=== PATIENT | male | born 1960 | race Caucasian/White ===

== ENCOUNTER 2020-02-14 22:38 | Observation (INO) | payer BC ==
[2020-02-14] MEDS ORDERED: Sodium Chloride 0.9% 1,000 ML IV SCH (23:45)
[2020-02-14] MEDS ORDERED: Ondansetron 4 MG/2 ML SDV IVPUSH ONE (23:56)
[2020-02-14] MEDS ORDERED: HYDROmorphone 1 MG/ML Syringe IVPUSH STA (23:56)
--- NOTE | 2020-02-15 | EDM.PDOC ---
ED HPI GENERAL MEDICAL PROBLEM - General Chief Complaint: Abdominal Pain Stated Complaint: ABDOMINAL PAIN Time Seen by Provider: 02/14/20 23:40 Source of Information: Reports: Patient History Limitations: Reports: No Limitations - History of Present Illness INITIAL COMMENTS - FREE TEXT/NARRATIVE: Mr. Gannon is a very pleasant 59-year-old man with a past medical history significant for hypertension and obesity, who now presents to the ED stating that he developed right lower quadrant pain yesterday afternoon, , 2019. His pain is crampy in character, and constant. Initially it was mild, however, it has been progressively getting worse. It is made worse with movement, especially with getting up. No associated fever, nausea, vomiting, constipation, diarrhea, or urinary symptoms. No prior similar symptoms. The patient has not taken any [id number] or home remedies to try to treat his symptoms. The patient denies recent chills, sore throat, ear pain, nasal or sinus congestion, cough, dyspnea, chest pain, palpitations, recent weight gain or weight loss, recent bloody bowel movements or black bowel movements, recent joint aches, headaches, or rashes. Here in the ED, the patient's initial BP was found to be elevated at 169/105, otherwise, he is hemodynamically stable, afebrile, saturating 97% on room air. He last ate around 13:00 this afternoon. The patient's PCP is MARISSA Bowman. He did not receive an influenza vaccine this season, but agreed to receive one here today. Right Lower Abdomen Pain Score (Numeric/FACES): 8 - Related Data Allergies Allergy/AdvReac Type Severity Reaction Status Date / Time No Known Allergies Allergy Verified 02/14/20 23:00 Home Meds: Home Meds Lisinopril [Zestril] 20 mg PO DAILY 02/14/20 [History] Past Medical History Cardiovascular History: Reports: Hypertension Respiratory History: Reports: Other (See Below) (Asbestosis) Endocrine/Metabolic History: Reports: Obesity/BMI 30+ - Past Surgical History Musculoskeletal Surgical History: Reports: Other (See Below) (Bilateral biceps tendon rupture repair) Social & Family History - Tobacco Use Smoking Status *Q: Current Every Day Smoker Years of Tobacco use: 30 Packs/Tins Daily: 0.5 - Caffeine Use Caffeine Use: Reports: Coffee, Soda - Alcohol Use Alcohol Use History: Yes Alcohol Use Frequency: Socially - Recreational Drug Use Recreational Drug Use: No - Living Situation & Occupation Living situation: Reports: , with Spouse, with Family (2 kids + 1 foster child) 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 ED EXAM, GI/ABD - Physical Exam Exam: See Below Exam Limited By: No Limitations General Appearance: Alert, WD/WN, No Apparent Distress Eyes: Bilateral: Normal Appearance, EOMI Ears: Normal External Exam, Hearing Grossly Normal Nose: Normal Inspection Throat/Mouth: Normal Inspection, Normal Lips, Normal Voice, No Airway Compromise Head: Atraumatic, Normocephalic Neck: Normal Inspection, Full Range of Motion Respiratory/Chest: No Respiratory Distress, Lungs Clear, Normal Breath Sounds, No Accessory Muscle Use Cardiovascular: Normal Peripheral Pulses, Regular Rate, Rhythm, No Edema, No Gallop, No JVD, No Murmur, No Rub GI/Abdominal Exam: Normal Bowel Sounds, Soft, No Organomegaly, No Distention, No Abnormal Bruit, No Mass, Tender (Exquisite tenderness right lower quadrant only. Nontender elsewhere, but Rovsing sign present. Psoas sign absent. Obturator sign absent. Heel drop sign present.) Rectal (Males) Exam: Deferred Back Exam: Normal Inspection, Full Range of Motion. No: CVA Tenderness (L), CVA Tenderness (R) Extremities: Normal Inspection, Normal Range of Motion, No Pedal Edema, Normal Capillary Refill Neurological: Alert, Oriented, Normal Cognition, No Motor/Sensory Deficits Psychiatric: Normal Affect Skin Exam: Warm, Dry, Intact, Normal Color, No Rash Course - Vital Signs Last Recorded V/S: Last Vital Signs Temp 36.6 C 02/14/20 22:55 Pulse 100 02/14/20 22:55 Resp 20 02/14/20 22:55 BP 169/105 H 02/14/20 22:55 Pulse Ox 97 02/14/20 22:55 - Orders/Labs/Meds Orders: Active Orders 24 hr Category Date Time Status Influenza Vaccine Charge [RC] .DISCHARGE Care 02/14/20 23:58 Active Abdomen Pelvis w Cont [CT] Stat Exams 02/15/20 00:01 Taken Ertapenem [INVanz] 1 gm Med 02/15/20 02:10 Active Sodium Chloride 0.9% [Normal Saline] 50 ml IV ONETIME Lactated Ringers [Ringers, Lactated] 1,000 ml Med 02/15/20 02:15 Active IV ASDIRECTED Medication Orders Ertapenem 1 gm/ Sodium (Chloride) 50 mls @ 100 mls/hr IV ONETIME STA Stop: 02/15/20 02:39 Lactated Ringer's (Ringers, Lactated) 1,000 mls @ 125 mls/hr IV ASDIRECTED YU Labs: Laboratory Tests 02/14/20 02/14/20 Range/Units 23:22 23:22 WBC 14.46 H (4.23-9.07) K/mm3 RBC 4.34 L (4.63-6.08) M/mm3 Hgb 15.1 (13.7-17.5) gm/dl Hct 45.8 (40.1-51.0) % MCV 105.5 H D (79.0-92.2) fl MCH 34.8 H (25.7-32.2) pg MCHC 33.0 (32.2-35.5) g/dl RDW Std Deviation 49.1 H (35.1-43.9) fL Plt Count 276 (163-337) K/mm3 MPV 9.9 (9.4-12.3) fl Neutrophils % (Manual) 69 H (40-60) % Band Neutrophils % 0 (0-10) % Lymphocytes % (Manual) 23 (20-40) % Atypical Lymphs % 0 % Monocytes % (Manual) 8 (2-10) % Eosinophils % (Manual) 0 L (0.8-7.0) % Basophils % (Manual) 0 L (0.2-1.2) Platelet Estimate Adequate Anisocytosis 1+ slight Macrocytosis 2+ moderate RBC Morph Comment Not Reportable Sodium 139 (136-145) mEq/L Potassium 4.6 (3.5-5.1) mEq/L Chloride 104 (98-107) mEq/L Carbon Dioxide 25 (21-32) mEq/L Anion Gap 14.6 (5-15) BUN 15 (7-18) mg/dL Creatinine 1.4 H (0.7-1.3) mg/dL Est Cr Clr Drug Dosing 52.46 mL/min Estimated GFR (MDRD) 52 (>60) mL/min BUN/Creatinine Ratio 10.7 L (14-18) Glucose 124 H (74-106) mg/dL Calcium 8.9 (8.5-10.1) mg/dL Total Bilirubin 0.6 (0.2-1.0) mg/dL AST 36 (15-37) U/L ALT 69 H (16-63) U/L Alkaline Phosphatase 93 (46-116) U/L Total Protein 7.7 (6.4-8.2) g/dl Albumin 3.8 (3.4-5.0) g/dl Globulin 3.9 gm/dL Albumin/Globulin Ratio 1.0 (1-2) Meds: Medications Generic Name Dose Route Start Last Admin Trade Name Freq PRN Reason Stop Dose Admin Ertapenem 1 gm/ Sodium 50 mls @ 100 mls/hr 02/15/20 02:10 Chloride IV 02/15/20 02:39 ONETIME STA Lactated Ringer's 1,000 mls @ 125 mls/hr 02/15/20 02:15 Ringers, Lactated IV ASDIRECTED YU Discontinued Medications Generic Name Dose Route Start Last Admin Trade Name Freq PRN Reason Stop Dose Admin Hydromorphone HCl 0.5 mg 02/14/20 23:56 02/15/20 00:05 Dilaudid IVPUSH 02/14/20 23:57 0.5 mg ONETIME STA Administration Sodium Chloride 1,000 mls @ 150 mls/hr 02/14/20 23:45 02/15/20 00:02 Normal Saline IV 150 mls/hr ASDIRECTED YU Administration Influenza Virus Vaccine 1 each 02/14/20 23:58 Pharmacy To Dose - Influenza Vaccine IM 02/14/20 23:59 ONETIME ONE Influenza Virus Vaccine 60 mcg 02/15/20 00:15 02/15/20 00:23 Fluzone Quad [id number] Syringe IM 02/15/20 00:16 60 mcg .ONCE ONE Administration Iopamidol 100 ml 02/15/20 01:00 02/15/20 01:10 Isovue-300 (61%) IVPUSH 02/15/20 01:01 100 ml ONETIME ONE Administration Ondansetron HCl 4 mg 02/14/20 23:56 02/15/20 00:03 Zofran IVPUSH 02/14/20 23:57 4 mg ONETIME ONE Administration - Re-Assessments/Exams Free Text/Narrative Re-Assessment/Exam: 02/14/20 23:58 Physical examination are compelling for acute appendicitis. I have therefore ordered a work-up that includes blood work and a CT scan of his abdomen and pelvis with oral and IV contrast. In the meantime, the patient will be given IV Dilaudid, IV Zofran, and IV fluid. 02/15/20 00:49 The patient's CBC is remarkable for a WBC count elevated at 14.46, but with 0% bandemia. The remainder of his CBC is unremarkable. His CMP is remarkable for a Cr slightly elevated at 1.4, with a BUN normal at 15. His blood glucose is mildly elevated at 124. His AST is within normal limits at 36, but his ALT is mildly elevated at 69. The remainder of his CMP is unremarkable. 02/15/20 02:05 CT of the abdomen and pelvis with oral and IV contrast as read by [facility] as: 1. Findings consistent with acute appendicitis without perforation or abscess. 2. Colonic diverticulosis without CT findings of acute diverticulitis. 3. Additional nonemergent CT findings above. 02/15/20 02:[address] Fortune at 02:08. He asked that I give the patient 1 g of IV Invanz and switch his IV fluid to LR at 125 mL/h. I will place the patient into observation, with the anticipation that he will go to the OR in the morning. 02/15/20 02:[address] Fortune's recommendations discussed with the patient. The patient is agreeable. I will write bridge orders for pain medication and Zofran as needed. Departure - Departure Time of Disposition: 02:14 Disposition: Refer to Observation Condition: Good Clinical Impression: Acute appendicitis - Discharge Information *PRESCRIPTION DRUG MONITORING PROGRAM REVIEWED*: Not Applicable *COPY OF PRESCRIPTION DRUG MONITORING REPORT IN PATIENT ADRIANA: Not Applicable Referrals: Candie Acevedo PA-C [Ordering Only Provider] - Forms: ED Department Discharge Sepsis Event Note - Evaluation Sepsis Screening Result: No Definite Risk - Focused Exam Vital Signs: Vital Signs Temp Pulse Resp BP Pulse Ox 02/14/20 22:55 36.6 C 100 20 169/105 H 97 Date Exam was Performed: 02/15/20 Time Exam was Performed: 02:23 - My Orders Last 24 Hours: My Active Orders 02/14/20 23:58 Influenza Vaccine Charge [RC] .DISCHARGE 02/15/20 00:01 Abdomen Pelvis w Cont [CT] Stat 02/15/20 02:10 Ertapenem [INVanz] 1 gm Sodium Chloride 0.9% [Normal Saline] 50 ml IV ONETIME 02/15/20 02:15 Lactated Ringers [Ringers, Lactated] 1,000 ml IV ASDIRECTED - Assessment/Plan Last 24 Hours: My Active Orders 02/14/20 23:58 Influenza Vaccine Charge [RC] .DISCHARGE 02/15/20 00:01 Abdomen Pelvis w Cont [CT] Stat 02/15/20 02:10 Ertapenem [INVanz] 1 gm Sodium Chloride 0.9% [Normal Saline] 50 ml IV ONETIME 02/15/20 02:15 Lactated Ringers [Ringers, Lactated] 1,000 ml IV ASDIRECTED
[2020-02-15] MEDS ORDERED: FLU Vacc QS2019-20(6MOS+)/PF 60 MCG/0.5 ML SYRINGE IM ONE (00:15)
[2020-02-15] MEDS ORDERED: Iopamidol 612 MG/ML 100 ML Bottle IVPUSH ONE (01:00)
[2020-02-15] MEDS ORDERED: Ertapenem 1 GM in Sodium Chloride 0.9% 50 ML IV STA (02:10)
[2020-02-15] MEDS ORDERED: Lactated Ringers 1,000 ML IV SCH (02:15)
[2020-02-15] MEDS ORDERED: HYDROmorphone 0.5 MG/0.5 ML Syringe IVPUSH PRN ×2 (03:42→10:53)
[2020-02-15] MEDS ORDERED: Ondansetron 4 MG/2 ML SDV IVPUSH PRN ×2 (03:43→10:53)
[2020-02-15] MEDS ORDERED: Lidocaine 1% 50 ML MDV ONE (07:30)
--- NOTE | 2020-02-15 08:03 | PCM.HP.2 ---
H&P History of Present Illness - General Date of Service: 02/15/20 Admit Problem/Dx: Admission Diagnosis/Problem Admission Diagnosis/Problem Appendicitis Source of Information: Patient History Limitations: Reports: No Limitations - History of Present Illness Initial Comments - Free Text/Narative: The patient started having RLQ abdominal pain on 02/12. This got progressively worse over the next day to a point where he could not move or stand up straight. He came to the ED for evaluation. The pain was in RLQ, non-radiating, sharp, up to 8/10, movement made it worse, resting improved it, no associated nausea or vomiting. Onset of Symptoms: Reports: Gradual Duration of Symptoms: Reports: Getting Worse Location: Reports: Abdomen Quality: Reports: Sharp Severity: Severe Improves with: Reports: Immobilization Worsens with: Reports: Movement Associated Symptoms: Reports: No Other Symptoms Right Lower Abdomen Pain Score (Numeric/FACES): 3 - Related Data Allergies/Adverse Reactions: Allergies Allergy/AdvReac Type Severity Reaction Status Date / Time No Known Allergies Allergy Verified 02/14/20 23:00 Home Medications: Home Meds Lisinopril [Zestril] 20 mg PO DAILY 02/14/20 [History] Past Medical History Cardiovascular History: Reports: Hypertension Respiratory History: Reports: Other (See Below) Other Respiratory History: ANGELO Endocrine/Metabolic History: Reports: Obesity/BMI 30+ - Infectious Disease History Infectious Disease History: Reports: Chicken Pox, Measles - Past Surgical History Musculoskeletal Surgical History: Reports: Other (See Below) (Bilateral biceps tendon rupture repair) Social & Family History - Family History Neurological: Reports: Dementia Oncologic: Reports: Skin - Tobacco Use Smoking Status *Q: Current Every Day Smoker Years of Tobacco use: 30 Packs/Tins Daily: 0.5 - Caffeine Use Caffeine Use: Reports: Soda - Alcohol Use Date of Last Drink: 02/12/20 - Recreational Drug Use Recreational Drug Use: No - Living Situation & Occupation Living situation: Reports: , with Spouse, with Family (2 kids + 1 foster child) 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) H&P Review of Systems - Review of Systems: Review Of Systems: See Below General: Reports: No Symptoms HEENT: Reports: No Symptoms Pulmonary: Reports: Cough (chronic) Cardiovascular: Reports: No Symptoms Gastrointestinal: Reports: No Symptoms Genitourinary: Reports: No Symptoms Musculoskeletal: Reports: No Symptoms Skin: Reports: No Symptoms Psychiatric: Reports: No Symptoms Neurological: Reports: No Symptoms Hematologic/Lymphatic: Reports: No Symptoms Immunologic: Reports: No Symptoms Exam - Exam Exam: See Below - Vital Signs Vital Signs: Last Vital Signs Temp 98.6 F 02/15/20 02:52 Pulse 101 H 02/15/20 02:52 Resp 16 02/15/20 02:52 BP 142/94 H 02/15/20 02:52 Pulse Ox 91 L 02/15/20 02:52 Weight: 102.194 kg - Exam General: Alert, Oriented, Cooperative, Mild Distress HEENT: Conjunctiva Clear Cardiovascular: Regular Rate, Regular Rhythm, Normal S1, Normal S2 GI/Abdominal Exam: Soft, No Organomegaly, No Distention, No Abnormal Bruit, No Mass, Tender (RLQ) (Male) Exam: No Hernia Extremities: Normal Inspection - Patient Data Lab Results Last 24 hrs: Laboratory Results - last 24 hr 02/14/20 02/14/20 Range/Units 23:22 23:22 WBC 14.46 H (4.23-9.07) K/mm3 RBC 4.34 L (4.63-6.08) M/mm3 Hgb 15.1 (13.7-17.5) gm/dl Hct 45.8 (40.1-51.0) % MCV 105.5 H D (79.0-92.2) fl MCH 34.8 H (25.7-32.2) pg MCHC 33.0 (32.2-35.5) g/dl RDW Std Deviation 49.1 H (35.1-43.9) fL Plt Count 276 (163-337) K/mm3 MPV 9.9 (9.4-12.3) fl Neutrophils % (Manual) 69 H (40-60) % Band Neutrophils % 0 (0-10) % Lymphocytes % (Manual) 23 (20-40) % Atypical Lymphs % 0 % Monocytes % (Manual) 8 (2-10) % Eosinophils % (Manual) 0 L (0.8-7.0) % Basophils % (Manual) 0 L (0.2-1.2) Platelet Estimate Adequate Anisocytosis 1+ slight Macrocytosis 2+ moderate RBC Morph Comment Not Reportable Sodium 139 (136-145) mEq/L Potassium 4.6 (3.5-5.1) mEq/L Chloride 104 (98-107) mEq/L Carbon Dioxide 25 (21-32) mEq/L Anion Gap 14.6 (5-15) BUN 15 (7-18) mg/dL Creatinine 1.4 H (0.7-1.3) mg/dL Est Cr Clr Drug Dosing 52.46 mL/min Estimated GFR (MDRD) 52 (>60) mL/min BUN/Creatinine Ratio 10.7 L (14-18) Glucose 124 H (74-106) mg/dL Calcium 8.9 (8.5-10.1) mg/dL Total Bilirubin 0.6 (0.2-1.0) mg/dL AST 36 (15-37) U/L ALT 69 H (16-63) U/L Alkaline Phosphatase 93 (46-116) U/L Total Protein 7.7 (6.4-8.2) g/dl Albumin 3.8 (3.4-5.0) g/dl Globulin 3.9 gm/dL Albumin/Globulin Ratio 1.0 (1-2) Result Diagrams: 02/14/20 23:22 02/14/20 23:22 Sepsis Event Note - Evaluation Sepsis Screening Result: Sepsis Risk - Focused Exam Vital Signs: Vital Signs Temp Temp Pulse Pulse Resp BP BP 02/15/20 02:52 98.6 F 101 H 16 142/94 H 02/15/20 02:15 98.2 F 101 H 20 145/98 H 02/14/20 22:55 97.9 F 100 20 169/105 H Pulse Ox 02/15/20 02:52 91 L 02/15/20 02:15 93 L 02/14/20 22:55 97 Date Exam was Performed: 02/15/20 Time Exam was Performed: 07:58 Problem List Initiated/Reviewed/Updated: No Orders Last 24hrs: Active Orders 24 hr Category Date Time Status Admission Status [Patient Status] [ADT] Routine ADT 02/15/20 02:26 Active EKG Documentation Completion [RC] ROUTINE Care 02/15/20 07:53 Active RT Aerosol Therapy [RC] ASDIRECTED Care 02/15/20 07:54 Active Up With Assistance [RC] ASDIRECTED Care 02/15/20 03:41 Active Nothing per Oral Now Diet [DIET] Diet 02/15/20 Breakfast Active Abdomen Pelvis w Cont [CT] Stat Exams 02/15/20 00:01 Taken Albuterol [Proventil Neb Soln] Med 02/15/20 09:00 Once 2.5 mg NEB ONETIME ONE HYDROmorphone [Dilaudid] Med 02/15/20 03:42 Active 0.5 mg IVPUSH Q2H PRN Lactated Ringers [Ringers, Lactated] 1,000 ml Med 02/15/20 02:15 Active IV ASDIRECTED Ondansetron [Zofran] Med 02/15/20 03:43 Active 4 mg IVPUSH Q6H PRN Resuscitation Status Routine Resus Stat 02/15/20 03:41 Ordered Medication Orders Albuterol (Proventil Neb Soln) 2.5 mg NEB ONETIME ONE Stop: 02/15/20 09:01 Hydromorphone HCl (Dilaudid) 0.5 mg IVPUSH Q2H PRN PRN Reason: Pain Lactated Ringer's (Ringers, Lactated) 1,000 mls @ 125 mls/hr IV ASDIRECTED YU Last Admin: 02/15/20 02:45 Dose: 125 mls/hr Ondansetron HCl (Zofran) 4 mg IVPUSH Q6H PRN PRN Reason: Nausea/Vomiting Assessment/Plan Comment:: Patient has acute appendicitis. I recommended we proceed with laparoscopic appendectomy, possible open. We discussed risks, benefits and alternatives and post operative expectations. Informed consent was obtained. We will proceed with the surgery. - Mortality Measure Prognosis:: Good
[2020-02-15] MEDS ORDERED: Propofol 200 MG/20 ML SDV ONE (08:34)
[2020-02-15] MEDS ORDERED: Ondansetron 4 MG/2 ML SDV ONE (08:34)
[2020-02-15] MEDS ORDERED: Rocuronium 50 MG/5 ML Vial ONE (08:34)
[2020-02-15] MEDS ORDERED: Dexamethasone 4 MG/ML SDV ONE ×2 (08:34→08:35)
[2020-02-15] MEDS ORDERED: Lidocaine 1% 4 ML ONE (08:34)
[2020-02-15] MEDS ORDERED: Lactated Ringers 1,000 ML ONE (08:34)
[2020-02-15] MEDS ORDERED: fentaNYL 250 MCG/5 ML SDV ONE (08:35)
[2020-02-15] MEDS ORDERED: Succinylcholine/Sod PF 100 MG/5 ML SYRINGE IV ONE (08:35)
[2020-02-15] MEDS ORDERED: Midazolam 1 MG/ML 2 ML SDV ONE (08:35)
[2020-02-15] MEDS ORDERED: Albuterol 0.083% 2.5 MG/3 ML Neb Soln NEB ONE (09:00)
[2020-02-15] MEDS ORDERED: Scopolamine 1.5 MG Transdermal Patch TOP ONE (09:34)
--- NOTE | 2020-02-15 09:55 | CT ---
CT abdomen and pelvis Technique: Multiple axial sections were obtained from above the dome of the diaphragm inferiorly through the pubic symphysis. Intravenous and oral contrast was utilized. Delayed images were also obtained through the bladder. Comparison: No prior abdominal imaging is available. Findings: Visualized lung bases show nothing acute. Small nodule is noted within the left lung base measuring 7 mm. Slight pleural-based nodules are also noted within the left base. No calcifications are seen within these nodules. Liver shows fatty infiltration without focal abnormality being identified. Spleen appears within normal limits. Adrenal glands show no nodule. Kidneys show symmetric contrast enhancement without hydronephrosis or mass. Pancreas appears within normal limits. There is a duodenal diverticulum being seen measuring 2.2 cm. Aorta shows no aneurysm. Atherosclerotic calcification is noted within the aorta. Mild ectasia is noted of the distal aorta. No retroperitoneal adenopathy is seen. No mesenteric abnormalities are seen. No pelvic mass or adenopathy is seen. Appendix is slightly enlarged with mild surrounding inflammatory change. Delayed images shows contrast within the bladder. Bone window settings were reviewed which shows scattered degenerative change within the spine. No acute osseous finding is appreciated. Small fat-containing umbilical hernia is noted. Mild diverticulosis is noted within the descending and sigmoid regions without diverticulitis. Impression: 1. Findings compatible with appendicitis. 2. Nodules within the left lung base. Recommend noncontrast chest CT study in 9 months to confirm stability. This noncontrast chest CT would occur in November,. 3. Fatty infiltration within the liver and other nonacute findings as noted above. Diagnostic code #9 This report was dictated in MDT I mostly agree with preliminary report from [facility] (additional finding of left lower lung nodule for which follow-up has been recommended), finalized on 02/15/20, 3:02 AM Central Time
[2020-02-15] MEDS ORDERED: fentaNYL 100 MCG/2 ML SDV IVPUSH PRN (10:53)
--- NOTE | 2020-02-15 10:53 | PCM.PREANE ---
Preanesthetic Assessment - Procedure Proposed Procedure: Laparoscopic Appendectomy - Anesthesia/Transfusion/Family Hx Anesthesia History: Prior Anesthesia Without Reaction Type of Anesthesia Reaction: Excessive Nausea/Vomiting Family History of Anesthesia Reaction: No Transfusion History: No Prior Transfusion(s) - Review of Systems General: Malaise Pulmonary: Cough (Dry, chronic. Sinus drainage currently aggrivating his cough. ), Other (Aesbestos exposure, follows with pulmonology yearly, has a rescure inhaler that he rarely uses. ) Gastrointestinal: Abdominal Pain, Nausea (Yesterday when he came in, none today. ) Other: Reports: Sinus Problem (Sinus drainage, clear. ) - Physical Assessment NPO Status Date: 02/15/20 NPO Status Time: 00:00 Vital Signs: Last Vital Signs Temp 37.0 C 02/15/20 08:42 Pulse 93 02/15/20 08:42 Resp 16 02/15/20 08:42 BP 141/84 H 02/15/20 08:42 Pulse Ox 92 L 02/15/20 09:42 Height: 1.7 m Weight: 102.194 kg ASA Class: 3 Mental Status: Alert & Oriented x3 Airway Class: Mallampati = 2 Dentition: Reports: Caries Thyro-Mental Finger Breadths: 3 Mouth Opening Finger Breadths: 3 ROM/Head Extension: Full Lungs: Clear to Auscultation, Normal Respiratory Effort, Decreased Breath Sounds Cardiovascular: Regular Rate, Regular Rhythm - Lab Values: Laboratory Last Values WBC 14.46 K/mm3 (4.23-9.07) H 02/14/20 23:22 RBC 4.34 M/mm3 (4.63-6.08) L 02/14/20 23:22 Hgb 15.1 gm/dl (13.7-17.5) 02/14/20 23:22 Hct 45.8 % (40.1-51.0) 02/14/20 23:22 MCV 105.5 fl (79.0-92.2) H D 02/14/20 23:22 MCH 34.8 pg (25.7-32.2) H 02/14/20 23:22 MCHC 33.0 g/dl (32.2-35.5) 02/14/20 23:22 RDW Std Deviation 49.1 fL (35.1-43.9) H 02/14/20 23:22 Plt Count 276 K/mm3 (163-337) 02/14/20 23:22 MPV 9.9 fl (9.4-12.3) 02/14/20 23:22 Neutrophils % (Manual) 69 % (40-60) H 02/14/20 23:22 Band Neutrophils % 0 % (0-10) 02/14/20 23:22 Lymphocytes % (Manual) 23 % (20-40) 02/14/20 23:22 Atypical Lymphs % 0 % 02/14/20 23:22 Monocytes % (Manual) 8 % (2-10) 02/14/20 23:22 Eosinophils % (Manual) 0 % (0.8-7.0) L 02/14/20 23:22 Basophils % (Manual) 0 (0.2-1.2) L 02/14/20 23:22 Platelet Estimate Adequate 02/14/20 23:22 Anisocytosis 1+ slight 02/14/20 23:22 Macrocytosis 2+ moderate 02/14/20 23:22 RBC Morph Comment Not Reportable 02/14/20 23:22 Sodium 139 mEq/L (136-145) 02/14/20 23:22 Potassium 4.6 mEq/L (3.5-5.1) 02/14/20 23:22 Chloride 104 mEq/L (98-107) 02/14/20 23:22 Carbon Dioxide 25 mEq/L (21-32) 02/14/20 23:22 Anion Gap 14.6 (5-15) 02/14/20 23:22 BUN 15 mg/dL (7-18) 02/14/20 23:22 Creatinine 1.4 mg/dL (0.7-1.3) H 02/14/20 23:22 Est Cr Clr Drug Dosing 52.46 mL/min 02/14/20 23:22 Estimated GFR (MDRD) 52 mL/min (>60) 02/14/20 23:22 BUN/Creatinine Ratio 10.7 (14-18) L 02/14/20 23:22 Glucose 124 mg/dL (74-106) H 02/14/20 23:22 Calcium 8.9 mg/dL (8.5-10.1) 02/14/20 23:22 Total Bilirubin 0.6 mg/dL (0.2-1.0) 02/14/20 23:22 AST 36 U/L (15-37) 02/14/20 23:22 ALT 69 U/L (16-63) H 02/14/20 23:22 Alkaline Phosphatase 93 U/L (46-116) 02/14/20 23:22 Total Protein 7.7 g/dl (6.4-8.2) 02/14/20 23:22 Albumin 3.8 g/dl (3.4-5.0) 02/14/20 23:22 Globulin 3.9 gm/dL 02/14/20 23:22 Albumin/Globulin Ratio 1.0 (1-2) 02/14/20 23:22 - Allergies Allergies/Adverse Reactions: Allergies Allergy/AdvReac Type Severity Reaction Status Date / Time No Known Allergies Allergy Verified 02/14/20 23:00 - Anesthesia Plan Pre-Op Medication Ordered: Other (Albuterol nebulizer treatment and Scopalamine patch.) - Acknowledgements Anesthesia Type Planned: General Anesthesia Pt an Appropriate Candidate for the Planned Anesthesia: Yes Alternatives and Risks of Anesthesia Discussed w Pt/Guardian: Yes Pt/Guardian Understands and Agrees with Anesthesia Plan: Yes PreAnesthesia Questionnaire Cardiovascular History: Reports: Hypertension Respiratory History: Reports: Other (See Below) Other Respiratory History: ANGELO Endocrine/Metabolic History: Reports: Obesity/BMI 30+ - Infectious Disease History Infectious Disease History: Reports: Chicken Pox, Measles - Past Surgical History Musculoskeletal Surgical History: Reports: Other (See Below) (Bilateral biceps tendon rupture repair) - SUBSTANCE USE Smoking Status *Q: Current Every Day Smoker Tobacco Use Within Last Twelve Months: Cigarettes Date of Last Drink: 02/12/20 Recreational Drug Use History: No - HOME MEDS Home Medications: Home Meds Lisinopril [Zestril] 20 mg PO DAILY 02/14/20 [History] - CURRENT (IN HOUSE) MEDS Current Meds: Current Medications Hydromorphone HCl (Dilaudid) 0.5 mg IVPUSH Q2H PRN PRN Reason: Pain Lactated Ringer's (Ringers, Lactated) 1,000 mls @ 125 mls/hr IV ASDIRECTED YU Last Admin: 02/15/20 02:45 Dose: 125 mls/hr Ondansetron HCl (Zofran) 4 mg IVPUSH Q6H PRN PRN Reason: Nausea/Vomiting Discontinued Medications Albuterol (Proventil Neb Soln) 2.5 mg NEB ONETIME ONE Stop: 02/15/20 09:01 Last Admin: 02/15/20 09:42 Dose: 2.5 mg Dexamethasone (Dexamethasone) Confirm Administered Dose 4 mg .ROUTE .STK-MED ONE Stop: 02/15/20 08:35 Dexamethasone (Dexamethasone) Confirm Administered Dose 4 mg .ROUTE .STK-MED ONE Stop: 02/15/20 08:36 Fentanyl (Sublimaze) Confirm Administered Dose 250 mcg .ROUTE .STK-MED ONE Stop: 02/15/20 08:36 Hydromorphone HCl (Dilaudid) 0.5 mg IVPUSH ONETIME STA Stop: 02/14/20 23:57 Last Admin: 02/15/20 00:05 Dose: 0.5 mg Sodium Chloride (Normal Saline) 1,000 mls @ 150 mls/hr IV ASDIRECTED COUNTS INCLUDE 234 BEDS AT THE [facility] Last Admin: 02/15/20 00:02 Dose: 150 mls/hr Ertapenem 1 gm/ Sodium (Chloride) 50 mls @ 100 mls/hr IV ONETIME STA Stop: 02/15/20 02:39 Last Admin: 02/15/20 02:23 Dose: 100 mls/hr Lidocaine HCl (Xylocaine-Mpf 1%) Confirm Administered Dose 4 mls @ as directed .ROUTE .STK-MED ONE Stop: 02/15/20 08:35 Lactated Ringer's (Ringers, Lactated) Confirm Administered Dose 1,000 mls @ as directed .ROUTE .STK-MED ONE Stop: 02/15/20 08:35 Influenza Virus Vaccine (Pharmacy To Dose - Influenza Vaccine) 1 each IM ONETIME ONE Stop: 02/14/20 23:59 Influenza Virus Vaccine (Fluzone Quad 1677-7978 Syringe) 60 mcg IM .ONCE ONE Stop: 02/15/20 00:16 Last Admin: 02/15/20 00:23 Dose: 60 mcg Iopamidol (Isovue-300 (61%)) 100 ml IVPUSH ONETIME ONE Stop: 02/15/20 01:01 Last Admin: 02/15/20 01:10 Dose: 100 ml Lidocaine HCl (Xylocaine 1%) Confirm Administered Dose 50 ml .ROUTE .STK-MED ONE Stop: 02/15/20 07:31 Midazolam HCl (Versed 1 Mg/Ml) Confirm Administered Dose 2 mg .ROUTE .STK-MED ONE Stop: 02/15/20 08:36 Ondansetron HCl (Zofran) 4 mg IVPUSH ONETIME ONE Stop: 02/14/20 23:57 Last Admin: 02/15/20 00:03 Dose: 4 mg Ondansetron HCl (Zofran) Confirm Administered Dose 4 mg .ROUTE .STK-MED ONE Stop: 02/15/20 08:35 Propofol (Diprivan 20 Ml) Confirm Administered Dose 400 mg .ROUTE .STK-MED ONE Stop: 02/15/20 08:35 Rocuronium [place] (Zemuron) Confirm Administered Dose 50 mg .ROUTE .STK-MED ONE Stop: 02/15/20 08:35 Scopolamine (Transderm-Scop) 1.5 mg TOP ONETIME ONE Stop: 02/15/20 09:35 Last Admin: 02/15/20 09:55 Dose: 1.5 mg
--- NOTE | 2020-02-15 12:02 | PCM.POSTAN ---
POST ANESTHESIA ASSESSMENT - MENTAL STATUS Mental Status: Other (Drowsy) - VITAL SIGNS Vital Signs: Last Vital Signs Temp 37.1 C 02/15/20 12:00 Pulse 96 02/15/20 12:00 Resp 17 02/15/20 12:00 BP 146/95 H 02/15/20 12:00 Pulse Ox 97 02/15/20 12:01 - RESPIRATORY Respiratory Status: Respiratory Rate WNL, Airway Patent, O2 Saturation Stable, Supplemental Oxygen - CARDIOVASCULAR CV Status: Pulse Rate WNL, Blood Pressure Stable - GASTROINTESTINAL GI Status: No Symptoms - PAIN Pain Score: 0 - POST OP HYDRATION Hydration Status: Adequate & Stable
--- NOTE | 2020-02-15 12:04 | PCM48HPAN ---
Post Anesthesia Note - EVALUATION WITHIN 48HRS OF ANESTHETIC Vital Signs in Normal Range: Yes Patient Participated in Evaluation: Yes Respiratory Function Stable: Yes Airway Patent: Yes Cardiovascular Function Stable: Yes Hydration Status Stable: Yes Pain Control Satisfactory: Yes Nausea and Vomiting Control Satisfactory: Yes Mental Status Recovered: Yes Vital Signs: Last Vital Signs Temp 37.1 C 02/15/20 12:00 Pulse 96 02/15/20 12:00 Resp 17 02/15/20 12:00 BP 146/95 H 02/15/20 12:00 Pulse Ox 97 02/15/20 12:01
--- NOTE | 2020-02-15 12:33 | OR ---
DATE OF OPERATION: 02/15/2020 SURGEON: Leann Fortune MD PREOPERATIVE DIAGNOSIS: Acute appendicitis. POSTOPERATIVE DIAGNOSIS: Acute appendicitis. OPERATION PERFORMED: Laparoscopic appendectomy. ANESTHESIA: General endotracheal. ESTIMATED BLOOD LOSS: 15 mL. COMPLICATIONS: None. FINDINGS: Acute appendicitis without perforation with localized peritonitis. INDICATION AND CONSENT: Mr. Gannon is a 59-year-old male, who started having right lower quadrant pain 2 days ago. Pain progressed and worsened overtime. Today, the patient could not move or stand up straight, so he presented to the emergency department, where white count was 14. CT scan confirmed acute appendicitis. I was called to see the patient. I saw the patient, confirmed the exam findings, laboratory, as well as imaging findings. I offered the patient to proceed with laparoscopic appendectomy, possible open. We discussed risks, benefits, and alternatives, and informed consent was obtained. The patient had already received Invanz in the emergency department. DESCRIPTION OF PROCEDURE: The patient was taken to the operating room, placed in supine position. Following induction of general endotracheal anesthesia, the patient was padded. SCDs were placed. Preop antibiotics were already given. Time-out was performed prior to the start of the procedure. Then, abdomen was prepped and draped in the usual sterile fashion. I began the procedure by making a supraumbilical incision after injection of local anesthetic consisting of 1% lidocaine. Then, subcutaneous tissue was dissected bluntly and the umbilical stalk was elevated with Thania clamp. Then, a Veress needle was inserted and abdomen was insufflated to 15 mmHg. Then, a 12 trocar was inserted here, under direct visualization of laparoscope. Next, we put two 5 mm trocars, one in the suprapubic position and another one in the left lower quadrant. We started working on the right lower quadrant. The patient was positioned in slight Trendelenburg and left-side down. Immediately, we saw the appendix in the right lateral abdomen causing slight peritonitis. There were adhesions to terminal ileum fat pad to this area. Appendix was lifted up. Adhesions were removed and a window at the appendiceal base was made, and the appendiceal base was taken with blue load using Endo-NEYDA stapler, and then mesoappendix was taken with a white vascular load using the same Endo-NEYDA stapler. There was bleeding at the end of the mesoappendix division. The bleeding was controlled with 2 laparoscopic clips. The dissection area was suctioned out and irrigated until the irrigant ran clear. There was no further bleeding. All the staple lines appeared to be well and hemostatic. At this point, we explored rest of the abdomen, and there were no other abnormalities. We removed the specimen and sent it for pathologic analysis. The supraumbilical incision was closed at the fascial level with 0 Vicryl stitches using Hemanth-David device and then skin at all 3 incisions were closed with 4-0 Monocryl. This marked the end of the procedure. At the end of the procedure, all instruments, sharps, and sponges were accounted and found to be correct x2. The patient was awoken from general anesthesia and taken to the PACU in stable condition. The patient will be allowed to go home once he tolerates fluids. The patient is to refrain from lifting more than 20 pounds for about 2 weeks. We will call the patient in 1 to 2 weeks for postop check. LAURITA /[id number]
--- NOTE | 2020-02-17 08:22 | PCM.DCSUM1 ---
Discharge Summary - Hospital Course Free Text/Narrative:: patient underwent laparoscopic appendectomy and post operatively he did well, tolerated fluids and was discharged to home. patient will follow up in 2 weeks of sooner if any complications arise. Diagnosis: Stroke: No - Discharge Data Discharge Date: 02/15/20 Discharge Disposition: Home, Self-Care 01 Condition: Good - Referral to Home Health Primary Care Physician: PCP None - Patient Instructions Diet: Regular Diet as Tolerated Activity: No Lifting Over 20 Pounds (for 2 weeks) Driving: Do Not Drive (for 24 hours after anesthesia or when taking opioid pain medications.) Showering/Bathing: May Shower Wound/Incision Care: Keep Operative Site/Wound Site Clean and Dry, Change Dressing Daily Notify Provider of: Fever, Increased Pain, Swelling and Redness, Drainage Other/Special Instructions: - Take Tylenol or Ibuprofen for pain. If pain becomes severe, take the prescribed pain medications. If taking opioid pain meds , take stool softeners as well. - If no bowel movement in 2 days, take Miralax which is available over the counter. - Discharge Plan *PRESCRIPTION DRUG MONITORING PROGRAM REVIEWED*: No *COPY OF PRESCRIPTION DRUG MONITORING REPORT IN PATIENT ADRIANA: No Prescriptions/Med Rec: Docusate Sodium [Colace] 100 mg PO BID 15 Days #30 capsule Hydrocodone/Acetaminophen [Hydrocodon-Acetaminophen 5-325] 1 each PO Q6H 3 Days #12 tablet Home Medications: Home Meds Lisinopril [Zestril] 20 mg PO DAILY 02/14/20 [History] Docusate Sodium [Colace] 100 mg PO BID 15 Days #30 capsule 02/15/20 [Rx] Hydrocodone/Acetaminophen [Hydrocodon-Acetaminophen 5-325] 1 each PO Q6H 3 Days #12 tablet 02/15/20 [Rx] Oxygen Therapy Mode: Room Air Patient Handouts: Docusate Sodium; Senna tablets or capsules, Acetaminophen; Hydrocodone tablets or capsules, Laparoscopic Appendectomy, Adult, Care After Forms: ED Department Discharge Referrals: Candie Acevedo PA-C [Ordering Only Provider] - (Dr. Fortune's office will call patient in 1-2 weeks for a post-op follow up.) - Discharge Summary/Plan Comment DC Time >30 min.: No - General Info Date of Service: 02/15/20 Admission Dx/Problem (Free Text: Admission Diagnosis/Problem Admission Diagnosis/Problem Appendicitis Functional Status: Reports: Pain Controlled, Tolerating Diet, Ambulating, Urinating - Review of Systems General: Reports: No Symptoms HEENT: Reports: No Symptoms Pulmonary: Reports: No Symptoms Cardiovascular: Reports: No Symptoms Gastrointestinal: Reports: Abdominal Pain Genitourinary: Reports: No Symptoms Musculoskeletal: Reports: No Symptoms Skin: Reports: No Symptoms Neurological: Reports: No Symptoms - Patient Data Vitals - Most Recent: Last Vital Signs Temp 98.1 F 02/15/20 12:55 Pulse 96 02/15/20 13:52 Resp 16 02/15/20 12:55 BP 145/99 H 02/15/20 13:52 Pulse Ox 93 L 02/15/20 13:52 Weight - Most Recent: 102.194 kg Med Orders - Current: Current Medications Discontinued Medications Albuterol (Proventil Neb Soln) 2.5 mg NEB ONETIME ONE Stop: 02/15/20 09:01 Last Admin: 02/15/20 09:42 Dose: 2.5 mg Dexamethasone (Dexamethasone) Confirm Administered Dose 4 mg .ROUTE .STK-MED ONE Stop: 02/15/20 08:35 Dexamethasone (Dexamethasone) Confirm Administered Dose 4 mg .ROUTE .STK-MED ONE Stop: 02/15/20 08:36 Fentanyl (Sublimaze) Confirm Administered Dose 250 mcg .ROUTE .STK-MED ONE Stop: 02/15/20 08:36 Fentanyl (Sublimaze) 50 mcg IVPUSH Q5M PRN PRN Reason: Pain Glycopyrrolate () Confirm Administered Dose 1 mg .ROUTE .STK-MED ONE Stop: 02/15/20 11:15 Hydromorphone HCl (Dilaudid) 0.5 mg IVPUSH ONETIME STA Stop: 02/14/20 23:57 Last Admin: 02/15/20 00:05 Dose: 0.5 mg Hydromorphone HCl (Dilaudid) 0.5 mg IVPUSH Q2H PRN PRN Reason: Pain Hydromorphone HCl (Dilaudid) 0.5 mg IVPUSH Q10M PRN PRN Reason: Pain (severe 7-10) Sodium Chloride (Normal Saline) 1,000 mls @ 150 mls/hr IV ASDIRECTED YU Last Admin: 02/15/20 00:02 Dose: 150 mls/hr Ertapenem 1 gm/ Sodium (Chloride) 50 mls @ 100 mls/hr IV ONETIME STA Stop: 02/15/20 02:39 Last Admin: 02/15/20 02:23 Dose: 100 mls/hr Lactated Ringer's (Ringers, Lactated) 1,000 mls @ 125 mls/hr IV ASDIRECTED [facility] Last Admin: 02/15/20 02:45 Dose: 125 mls/hr Lidocaine HCl (Xylocaine-Mpf 1%) Confirm Administered Dose 4 mls @ as directed .ROUTE .STK-MED ONE Stop: 02/15/20 08:35 Lactated Ringer's (Ringers, Lactated) Confirm Administered Dose 1,000 mls @ as directed .ROUTE .STK-MED ONE Stop: 02/15/20 08:35 Influenza Virus Vaccine (Pharmacy To Dose - Influenza Vaccine) 1 each IM ONETIME ONE Stop: 02/14/20 23:59 Influenza Virus Vaccine (Fluzone Quad Syringe) 60 mcg IM .ONCE ONE Stop: 02/15/20 00:16 Last Admin: 02/15/20 00:23 Dose: 60 mcg Iopamidol (Isovue-300 (61%)) 100 ml IVPUSH ONETIME ONE Stop: 02/15/20 01:01 Last Admin: 02/15/20 01:10 Dose: 100 ml Lidocaine HCl (Xylocaine 1%) Confirm Administered Dose 50 ml .ROUTE .STK-MED ONE Stop: 02/15/20 07:31 Last Admin: 02/15/20 10:34 Dose: 25 ml Midazolam HCl (Versed 1 Mg/Ml) Confirm Administered Dose 2 mg .ROUTE .STK-MED ONE Stop: 02/15/20 08:36 Neostigmine Methylsulfate (Neostigmine Methylsulfate) Confirm Administered Dose 5 mg .ROUTE .STK-MED ONE Stop: 02/15/20 11:15 Ondansetron HCl (Zofran) 4 mg IVPUSH ONETIME ONE Stop: 02/14/20 23:57 Last Admin: 02/15/20 00:03 Dose: 4 mg Ondansetron HCl (Zofran) 4 mg IVPUSH Q6H PRN PRN Reason: Nausea/Vomiting Ondansetron HCl (Zofran) Confirm Administered Dose 4 mg .ROUTE .STK-MED ONE Stop: 02/15/20 08:35 Ondansetron HCl (Zofran) 4 mg IVPUSH ONETIME PRN PRN Reason: Nausea/Vomiting Propofol (Diprivan 20 Ml) Confirm Administered Dose 400 mg .ROUTE .STK-MED ONE Stop: 02/15/20 08:35 Rocuronium [place] (Zemuron) Confirm Administered Dose 50 mg .ROUTE .STK-MED ONE Stop: 02/15/20 08:35 Scopolamine (Transderm-Scop) 1.5 mg TOP ONETIME ONE Stop: 02/15/20 09:35 Last Admin: 02/15/20 09:55 Dose: 1.5 mg - Exam General: Reports: Alert, Oriented, Cooperative Lungs: Reports: Clear to Auscultation, Normal Respiratory Effort Cardiovascular: Reports: Regular Rate, Regular Rhythm, No Murmurs GI/Abdominal Exam: Soft, Tender (appropriately, RLQ, segun-incisional) Extremities: Normal Inspection
== END 2020-02-15 14:00 | disposition home or self-care (01) ==
LOC: JD.ED 22:38 → JD.MS 02-15 02:30
PROVIDERS: ADMIT Surgery; ATTEND Surgery
DX: K35.33 Acute appendicitis with perforation, localized peritonitis, and gangrene, with abscess (principal); I10 Essential (primary) hypertension; E66.9 Obesity, unspecified; F17.210 Nicotine dependence, cigarettes, uncomplicated; Z79.899 Other long term (current) drug therapy; Z68.35 Body mass index [BMI] 35.0-35.9, adult
CPT/HCPCS: 36415; 44970; 74177; 80053; 85007; 85027; 90471; 90686; 93005; 94640; 96361; 96365; 96375; 99285; A9270; G0378; J0330; J1100; J1170; J1335; J2001; J2250; J2405; J2704; J2710; J3010; J7030; J7050; J7120; Q9967; 00840; G0008

== ENCOUNTER 2022-12-28 10:27 | Day surgery (SDC) | payer BC, OTHER ==
[2022-12-28] MEDS ORDERED: Lidocaine 1%/Sod Bicarbonate in NS 8.4% 1 ML Syringe IDERM PRN (11:30)
[2022-12-28] MEDS ORDERED: Lactated Ringers 1,000 ML IV SCH (11:30)
[2022-12-28] MEDS ORDERED: Sodium Chloride 0.9% 10 ML Syringe FLUSH PRN (11:30)
[2022-12-28] MEDS ORDERED: Albuterol 0.083% 2.5 MG/3 ML Neb Soln NEB SCH (11:46)
[2022-12-28] MEDS ORDERED: Lidocaine 1% 4 ML ONE (12:37)
[2022-12-28] MEDS ORDERED: Propofol 200 MG/20 ML SDV ONE (12:37)
[2022-12-28] MEDS ORDERED: Midazolam 1 MG/ML 2 ML SDV ONE (12:38)
[2022-12-28] MEDS ORDERED: fentaNYL 100 MCG/2 ML SDV ONE (12:38)
== END 2022-12-28 14:20 | disposition home or self-care (01) ==
LOC: JD.SDS 10:27
PROVIDERS: ATTEND Surgery
DX: D12.0 Benign neoplasm of cecum (principal); D12.5 Benign neoplasm of sigmoid colon; K29.50 Unspecified chronic gastritis without bleeding; K21.9 Gastro-esophageal reflux disease without esophagitis; G47.33 Obstructive sleep apnea (adult) (pediatric); I10 Essential (primary) hypertension; E78.5 Hyperlipidemia, unspecified; F17.210 Nicotine dependence, cigarettes, uncomplicated; E78.00 Pure hypercholesterolemia, unspecified; E66.9 Obesity, unspecified; Z68.32 Body mass index [BMI] 32.0-32.9, adult; Z98.890 Other specified postprocedural states; Z79.899 Other long term (current) drug therapy
CPT/HCPCS: J2250; J2704; J3010; J3490; J7120; J7620-GY

== ENCOUNTER 2023-11-10 10:26 | Emergency (ER) | payer OTHER ==
[2023-11-10] MEDS ORDERED: Ketorolac 30 MG/ML SDV IVPUSH ONE (11:06)
[2023-11-10] MEDS ORDERED: Orphenadrine 60 MG/2 ML Inj IV ONE (11:06)
[2023-11-10] MEDS ORDERED: Sodium Chloride 0.9% 10 ML Syringe FLUSH PRN (11:07)
[2023-11-10 11:36] LABS: APPEARANCE,URINE CLEAR (Clear); BASOPHILS PERCENT AUTO 0.3 % (0.0-1.0); BILIRUBIN,URINE NEGATIVE (Negative); COLOR,URINE YELLOW (Yellow); EOSINOPHILS ABSOLUTE AUTO 0.2 K/mm3 (0.0-0.4); EOSINOPHILS PERCENT AUTO 1.6 % (0.0-6.0); GLUCOSE,URINE NEGATIVE (Negative); HEMATOCRIT 47.3 % (42.0-52.0); HEMOGLOBIN 15.9 gm/dl (14.0-18.0); IMMATURE GRAN ABSOLUTE AUTO 0.03 K/mm3 (0.00-0.05); IMMATURE GRAN PERCENT AUTO 0.3 % (0.0-0.4); KETONES,URINE NEGATIVE (Negative); LEUKOCYTE ESTERASE,URINE NEGATIVE (Negative); LYMPHOCYTES ABSOLUTE AUTO 3.6 K/mm3 (1.0-4.8); LYMPHOCYTES PERCENT AUTO 35.7 % (24.0-44.0); MEAN CORPUSCULAR HEMOGLOBIN 34.8 pg (28.0-32.0); MEAN CORPUSCULAR HGB CONC 33.6 g/dl (32.0-36.0); MEAN CORPUSCULAR VOLUME 103.5 fl (83.0-99.0); MEAN PLATELET VOLUME 9.2 fl (9.4-12.4); MONOCYTES ABSOLUTE AUTO 0.8 K/mm3 (0.0-0.8); MONOCYTES PERCENT AUTO 7.4 % (0.0-8.0); NEUTROPHILS ABSOLUTE AUTO 5.6 K/mm3 (1.8-7.7); NEUTROPHILS PERCENT AUTO 54.7 % (41.0-71.0); NITRITE,URINE NEGATIVE (Negative); OCCULT BLOOD,URINE 1+ (Negative); PLATELET COUNT,PLT 235 K/mm3 (150-400); PROTEIN,URINE NEGATIVE (Negative); RED BLOOD CELL COUNT 4.57 M/mm3 (4.52-5.90); UROBILINOGEN,URINE 0.2 (0.2-1.0); WHITE BLOOD CELL COUNT,WBC 10.21 K/mm3 (3.9-11.3)
[2023-11-10 11:45] LABS: BACTERIA,URINE FEW /hpf (FEW); MUCUS,URINE FEW /hpf (FEW); SQUAMOUS EPITHELIAL CELLS,UR 0-5 /hpf (0-5); WBC,URINE 0-5 /hpf (0-5)
[2023-11-10 11:58] LABS: A/G RATIO 0.9 (1-2); ALANINE AMINOTRANSFERASE,ALT 40 U/L (16-63); ALBUMIN 3.8 g/dl (3.4-5.0); ALKALINE PHOSPHATASE 85 U/L (46-116); ANION GAP 11.8 (5-15); ASPARTATE AMNIOTRANSFERASE,AST 22 U/L (15-37); BILIRUBIN TOTAL 0.6 mg/dL (0.2-1.0); BLOOD UREA NITROGEN,BUN 17 mg/dL (7-18); BUN/CREATININE RATIO 13.1 (14-18); C-REACTIVE PROTEIN <0.2 mg/dL (<1.0); CALCIUM 9.3 mg/dL (8.5-10.1); CARBON DIOXIDE,CO2 26 mEq/L (21-32); CHLORIDE,CL 104 mEq/L (98-107); CREATININE 1.3 mg/dL (0.7-1.3); EST CRCL DRUG DOSING (CG) 54.38 mL/min; ESTIMATED GFR 62 mL/min (>60); GLUCOSE RANDOM 101 mg/dL (70-99); POTASSIUM,K 4.8 mEq/L (3.5-5.1); SODIUM,NA 137 mEq/L (136-145)
[2023-11-10] MEDS ORDERED: Acetaminophen/HYDROcodone 325-5 MG Tab PO ONE (12:31)
[2023-11-10] MEDS ORDERED: tiZANidine 4 MG Tab PO ONE (12:45)
== END 2023-11-10 14:55 | disposition home or self-care (01) ==
LOC: JD.ED 10:26
DX: M51.16 Intervertebral disc disorders with radiculopathy, lumbar region (principal); I10 Essential (primary) hypertension; F17.210 Nicotine dependence, cigarettes, uncomplicated; Z90.49 Acquired absence of other specified parts of digestive tract; Z79.899 Other long term (current) drug therapy
CPT/HCPCS: 36415; 72131; 80053; 81001; 83735; 85025; 86140; 96374; 96375; 99284; A9270; J1885; J2360; J3490